=== PATIENT | female | born 1970 | race Caucasian/White ===

== ENCOUNTER 2020-02-13 13:14 | Outpatient (CLI) | payer MEDICAID ==
[~2020-02-13] VITALS: Ht 170.2 cm; Wt 57.6 kg
[2020-02-13 13:33] VITALS: BP 131/77
[2020-02-13] MEDS ORDERED: ZOLOFT50 MG ORAL (13:33)
[2020-02-13] MEDS ORDERED: WELLBUTRIN XL150 MG ORAL (13:33)
[2020-02-13] MEDS ORDERED: CHLORTHALIDONE25 MG ORAL (13:33)
[2020-02-13] MEDS ORDERED: LISINOPRIL5 MG ORAL (13:33)
--- NOTE | 2020-02-13 14:45 | Consultation ---
DATE OF CONSULTATION: 02/13/2020 CONSULTING PHYSICIAN: Olivier Nevarez MD CHIEF COMPLAINT: Referral for screening colonoscopy. PAST MEDICAL HISTORY: Drug abuse, alcohol abuse, depression, hypertension, hypercholesteremia, UTI. PAST SURGICAL HISTORY: None. MEDICATIONS: Please see medication reconciliation list. FAMILY HISTORY: No family history of GI malignancy. ALLERGIES: To amlodipine. REVIEW OF SYSTEMS: A 10-point review of systems was performed and were negative. PHYSICAL EXAMINATION: VITAL SIGNS: Temperature 97.3, blood pressure is 130/77, pulse 60, respirations 20. Height is 5 feet 7 inches, weight is 127. HEENT: Normocephalic, atraumatic. Sclerae anicteric. NECK: Supple. No evidence of obvious lymphadenopathy. CARDIOVASCULAR: Regular rate and rhythm. Plus S1-S2. LUNGS: Clear to auscultation bilaterally. ABDOMEN: Soft, nontender. No rebound. No guarding. No peritoneal sign. EXTREMITIES: No cyanosis, no clubbing, no edema. ASSESSMENT AND PLAN: A 49-year-old female referred for screening colonoscopy. Patient was given instruction for colonoscopy. Risks and benefits of procedure were explained to her in detail. We will schedule as soon as authorization is obtained. Olivier Nevarez M.D. DR: MARJAN JOB#: [id number] CC:
== END 2020-02-13 15:14 | disposition home or self-care (01) ==
LOC: PAN 13:14
DX: I10 Essential (primary) hypertension (principal); E78.00 Pure hypercholesterolemia, unspecified; F32.9 Major depressive disorder, single episode, unspecified; Z88.8 Allergy status to other drugs, medicaments and biological substances
CPT/HCPCS: G0463